=== PATIENT | male | born 1990 | race African-American/Black ===

== ENCOUNTER 2016-09-11 11:16 | Emergency (ER) | payer MEDICAID ==
[~2016-09-11] VITALS: Ht 175.3 cm; Wt 89.8 kg
[~2016-09-11 11:16] MED LIST: QUET200T30; TRAZ100T2
[2016-09-11 11:52] VITALS: BP 129/68
[2016-09-11] MEDS ORDERED: KETOROLAC TROMETH 60MG/2ML VIAL IM ONE (12:00)
== END 2016-09-11 12:38 | disposition home or self-care (01) ==
LOC: ER 11:16
DX: S40.012A Contusion of left shoulder, initial encounter (principal); W51.XXXA Accidental striking against or bumped into by another person, initial encounter; Y93.67 Activity, basketball; Y99.8 Other external cause status; Y92.838 Other recreation area as the place of occurrence of the external cause
CPT/HCPCS: 73030; 96372; 99284; J1885

== ENCOUNTER 2018-12-16 18:43 | Emergency (ER) | payer MEDICAID ==
[~2018-12-16] VITALS: Ht 175.3 cm; Wt 89.8 kg
[2018-12-16 18:51] VITALS: BP 128/68
[2018-12-16 19:27] LABS: Urine Bacteria NONE SEEN /hpf (None Seen); Urine Blood Negative /uL (Negative); Urine Mucus FEW (None Seen); Urine Specific Gravity 1.028 (1.001-1.035); Urine WBC 13 /hpf (0 - 3)
[2018-12-16] MEDS ORDERED: cefTRIAXone SOD 1,000 MG VL IM ONE (19:45)
== END 2018-12-16 19:53 | disposition home or self-care (01) ==
LOC: ER 18:43
DX: N39.0 Urinary tract infection, site not specified (principal); Z79.899 Other long term (current) drug therapy
CPT/HCPCS: 81001; 96372; 99283; J0696

== ENCOUNTER 2021-03-11 09:52 | Emergency (ER) | payer MEDICAID ==
[~2021-03-11] VITALS: Ht 162.6 cm; Wt 91.6 kg
[~2021-03-11 09:52] MED LIST changes: -TRAZ100T2; +TRAZ100T3
[2021-03-11 09:55] VITALS: BP 132/81
== END 2021-03-11 11:13 | disposition home or self-care (01) ==
LOC: ER 09:52
DX: R10.30 Lower abdominal pain, unspecified (principal); Z53.21 Procedure and treatment not carried out due to patient leaving prior to being seen by health care provider

== ENCOUNTER 2021-03-19 11:12 | Emergency (ER) | payer MEDICAID ==
[~2021-03-19] VITALS: Ht 175.3 cm; Wt 90.7 kg
[2021-03-19 11:14] VITALS: BP 141/80
[2021-03-19 11:41] LABS: Basophils # (auto) 0 10 ^3/uL (0-0.2); Basophils % (auto) 0.4 % (0.0-2.0); Eosinophils # (auto) 0 10 ^3/uL (0-0.8); Eosinophils % (auto) 0.5 % (0.0-7.0); Hematocrit 47.2 % (41.0-53.0); Hemoglobin 16.2 g/dL (13.5-17.5); Lymphocytes # (auto) 3.2 10 ^3/uL (0.4-5.4); Lymphocytes % (auto) 40.1 % (10.0-50.0); Mean Corpuscular Hemoglobin 30.2 pg (28.0-32.0); Mean Corpuscular Hgb Conc. 34.4 g/dL (32.0-36.0); Mean Corpuscular Volume 87.8 fL (80.0-100.0); Monocytes # (auto) 0.6 10 ^3/uL (0-1.3); Monocytes % (auto) 7.3 % (0.0-12.0); Neutrophils # (auto) 4.1 10 ^3/uL (1.6-8.6); Neutrophils % (auto) 51.7 % (37.0-80.0); Nucleated Red Blood Cells % 0.1 %; Red Blood Cells 5.37 10^6/uL (4.5-5.90); Red Cell Distribution Width 13.1 % (11.8-14.3); White Blood Cell 7.9 10^3/uL (4.4-10.8)
[2021-03-19 11:54] LABS: Albumin 3.6 g/dL (3.4-5.0); Calcium 9.3 mg/dL (8.5-10.1); Potassium 4.2 mmol/L (3.5-5.1)
[2021-03-19 11:57] LABS: BUN/Creatinine Ratio 10.4; Bilirubin, Total 0.4 mg/dL (0.2-1.0); Total Protein 7.3 g/dL (6.4-8.2)
== END 2021-03-19 16:19 | disposition home or self-care (01) ==
LOC: ER 11:12
DX: R10.11 Right upper quadrant pain (principal); F12.10 Cannabis abuse, uncomplicated; R19.7 Diarrhea, unspecified; Z79.899 Other long term (current) drug therapy
CPT/HCPCS: 36415; 80053; 82150; 83690; 85025

== ENCOUNTER 2021-04-20 22:41 | Emergency (ER) | payer MEDICAID ==
[~2021-04-20] VITALS: Ht 175.3 cm; Wt 90.7 kg
[2021-04-21 01:30] VITALS: BP 121/73
== END 2021-04-21 01:17 | disposition home or self-care (01) ==
LOC: ER 22:45
DX: K02.9 Dental caries, unspecified (principal); J06.9 Acute upper respiratory infection, unspecified; R53.83 Other fatigue; Z79.899 Other long term (current) drug therapy

== ENCOUNTER 2021-08-07 12:50 | Emergency (ER) | payer MEDICAID ==
[~2021-08-07] VITALS: Ht 175.3 cm; Wt 89.8 kg
[2021-08-07 12:54] VITALS: BP 134/61
[2021-08-07] MEDS ORDERED: HYDR25SU21 RE (14:34)
[2021-08-07] MEDS ORDERED: DOCU-94 PO (14:34)
== END 2021-08-07 15:07 | disposition home or self-care (01) ==
LOC: ER 12:50
DX: K64.8 Other hemorrhoids (principal); J45.909 Unspecified asthma, uncomplicated; F12.10 Cannabis abuse, uncomplicated